=== PATIENT | male | born 1970 | race Caucasian/White ===

== ENCOUNTER 2024-08-14 14:13 | Outpatient (REF) | payer BC, SELFPAY ==
--- NOTE | ~2024-08-14 | US_ITS ---
EXAMINATION: ULTRASOUND EXTREMITY NONVASCULAR. CLINICAL INFORMATION: Palpable mass in the right foot. TECHNIQUE: Real-time ultrasound using linear transducer in the region of concern of the right foot. Grayscale and color Doppler technique.. COMPARISON: None FINDINGS: No solid lesion/mass. No fluid collections. US/US extremity nonvascular IMPRESSION: No solid or cystic lesion. Negative exam. Electronically signed by: Nasir Lewis MD 08/15/2024 07:17 AM EDT
== END 2024-08-14 14:14 | disposition home or self-care (01) ==
LOC: HO.HMGCX 14:13
PROVIDERS: PCP Internal Medicine; Visit Provider Internal Medicine
DX: M67.40 Ganglion, unspecified site (principal)
CPT/HCPCS: 76882

== ENCOUNTER → 2024-08-14 14:16 | Outpatient (BNV) | payer BC, SELFPAY | PROVIDERS: PCP Internal Medicine; Visit Provider Radiology Diagnostic Radiology | DX: R22.41 Localized swelling, mass and lump, right lower limb (principal) | CPT/HCPCS: 76882 ==